=== PATIENT | male | born 1985 | race Caucasian/White ===

== ENCOUNTER 2024-04-12 03:34 | Emergency (ER) | payer OTHER, SELFPAY ==
--- NOTE | ~2024-04-12 | XR_ITS ---
EXAMINATION: XR FINGER, RIGHT CLINICAL INFORMATION: Distal right finger infection COMPARISON: None available. TECHNIQUE: Frontal x-ray of right hand, frontal and lateral x-rays of the right thumb. FINDINGS: BONES: Bony structures are intact. There is no focal bone destruction or periosteal reaction seen. JOINTS: Alignment of joints is normal. SOFT TISSUE: Soft tissue is normal. No radiopaque foreign body or abnormal air collection is seen. XR/XR finger RT min 2V IMPRESSION: 1. Normal x-rays of right thumb. No fracture or dislocation or signs of osteomyelitis are found. Electronically signed by: Swapna Matthews MD 04/12/2024 12:25 PM EDT
[2024-04-12 03:45] VITALS: BP 132/85; PULSE 116; RESP 16; TEMP 37.6; O2SAT 99; BMI 38.6
[2024-04-12 06:00] VITALS: BP 134/83; PULSE 104; RESP 16; TEMP 37.7; O2SAT 97
[2024-04-12] MEDS: Ibuprofen 600 MG TABLET PO (06:42)
--- NOTE | 2024-04-12 07:21 | PC.NURSE ---
this RN resumed care of pt at 0645. a&ox4. vss and up to date. pt presents to the ED w/ sudden onset right sided thumb pain a few days ago while at dinner w/ a friend. pt reports instant 10/10 pain. pt verbalizes build up fluid on top of thumb where he then sterilized a needle in attempts to drain it on it's own. pt states since self lancing, sx got worse. swelling/redness noted to right thumb. hot to the touch. pt afebrile at this time but reports chills. limited ROM in thumb. pulses palpable. skin marker drawn on by previous RN. no noticeable spread to affected area. tech bedside obtaining labs. no sob/wob noted. respirations even/unlabored. plan of care ongoing. call bañuelos placed within reach.
[2024-04-12 07:36] LABS: MANUAL DIFF FLAG NO
[2024-04-12 07:38] LABS: Basophils Percent Auto 0.2 % (0-2); Eosinophils Percent Auto 0.2 % (0-4); Hemoglobin 13.1 g/dl (14.0-18.0); Imm Gran Abs Auto 0.07 X10*3/uL (0.00-0.03); Imm Gran Pct Auto 0.4 % (0.0-0.4); Lymphocytes Absolute Auto 1.1 X10*3/uL (1.2-4.9); Lymphocytes Percent Auto 6.3 % (20-40); Mean Corpuscular HGB Conc 34.5 g/dl (31.0-36.0); Mean Corpuscular Hemoglobin 29.6 pg (27.0-33.0); Mean Corpuscular Volume 85.8 fL (80.0-98.0); Mean Platelet Volume 10.9 fL (9.4-12.4); Monocytes Percent Auto 5.8 % (2-11); Neutrophils Absolute Auto 14.7 x10*3/uL (2.0-8.3); Neutrophils Percent Auto 87.1 % (45-73); Platelet Count 258 X10*3/uL (160-400); Red Blood Count 4.43 X10*6/uL (4.60-5.80); Red Cell Distribution Width 12.7 % (11.0-16.0); White Blood Count 16.8 X10*3/uL (4.8-10.8)
[2024-04-12 07:52] LABS: Alanine Aminotransferase 24 U/L (0-40); Albumin Level 4.2 g/dL (3.5-5.0); Alkaline Phosphatase 59 U/L (39-117); Anion Gap 13 (12-20); Aspartate Amino Transferase 19 U/L (5-37); Bilirubin Total 1.5 mg/dL (0.0-1.0); Blood Urea Nitrogen 15 mg/dL (9-16); C Reactive Protein 1.94 mg/dL (< or = 0.50); Calcium 9.9 mg/dL (8.4-10.2); Carbon Dioxide 22 mmol/L (22-29); Chloride 105 mmol/L (96-108); Creatinine Clr Calc Pharmacy 134.1; Estimated Glomerular Filt Rate > 60; Glucose Random 106 mg/dL (60-115); Potassium 3.7 mmol/L (3.3-5.1); Sodium 136 mmol/L (135-145); Total Protein 6.9 g/dL (6.5-8.0)
[2024-04-12 08:00] VITALS: BP 115/70; PULSE 106; RESP 18; TEMP 36.8; O2SAT 95
--- NOTE | 2024-04-12 08:03 | ED_ITS ---
HPI - General Adult General Chief complaint: Skin/Abscess/Foreign Body Stated complaint: rt thumb infection Time Seen by Provider: 04/12/24 08:03 History of Present Illness ED Provider: Jass SHAIKH narrative: The patient is a 38-year-old who says that yesterday he noticed some swelling near the nail of his right thumb. It was warm and he said there were some blisters on the skin. Last night at around 10 p.m. he used a needle to try to pop the blisters. He thought some fluid or pus came out but then he developed worsening pain and swelling at the thumb and redness on the dorsum of the thumb that seemed to be spreading up the back of the thumb and was then streaking up his arm to his right axilla. No definite fever. Related Data Previous Rx's ?Medication ?Instructions ?Recorded cephalexin 500 mg capsule 500 mg PO QID 10 days #40 caps 04/12/24 doxycycline monohydrate 100 mg 100 mg PO BID #20 caps 04/12/24 capsule valacyclovir 1 gram tablet 1,000 mg PO TID 7 days #21 tabs 04/12/24 Allergies Allergy/AdvReac Type Severity Reaction Status Date / Time codeine Allergy Hives Verified 04/12/24 03:48 prednisone Allergy Hives Verified 04/12/24 03:47 sulfamethoxazole Allergy Hives Verified 04/12/24 03:48 [From Bactrim] trimethoprim [From Bactrim] Allergy Hives Verified 04/12/24 03:48 Review of Systems 2 Review of Systems: Yes all other systems are reviewed and are negative PMFSH Social History Social History Smoked in Last 30 Days: No Use of substances other than those prescribed or required for medical reasons: No Advance Directives: No Advance Directives Information Provided: No Do you have a plan to hurt others: No Plan Physical Exam ED Vital Signs: Vital Signs - 24 hr 04/12/24 10:00 04/12/24 11:13 Temperature 97.6 F 97.6 F Pulse Rate 106 H 106 H Respiratory Rate 18 18 Blood Pressure 141/78 H 141/78 H Pulse Oximetry 96 96 Oxygen Delivery Method Room Air Room Air BMI result Body Mass Index 38.6 Const Other: The patient is a 38-year-old male who was awake and alert with a normal mental status. He does not appear in acute distress. HENMT Head: Yes normal to inspection Face and sinus: Yes normal facial exam Mouth: moist mucous membranes Eyes General: appearance normal, both eyes and all related structures Neck Neck: Yes no lymphadenopathy Resp Effort & Inspection: normal respiratory effort Auscultation: clear to auscultation bilaterally Cardio Rate: regular rate Rhythm: regular rhythm Heart sounds: S1 normal heart sound present and S2 normal heart sound present Skin Other: The patient has some swelling and erythema to the paronychial skin of the right thumb. There is no apparent purulence. There is a vesicle on the erythema. There is also some additional erythema on the dorsum of the thumb that leads to a streak of lymphangitis on the volar forearm and the medial aspect of the upper arm terminating in the axilla. Neuro Other: The patient is awake and alert with a normal mental status. Cranial nerves are grossly intact. Normal neurological function of the right hand. Extrem Other: There is erythema and swelling to the paronychia skin of the right thumb associated with a small vesicle. There is also some additional erythema on the dorsum of the thumb generally. The patient is able to move the joints of the thumb. He is able to move all the joints of the right arm. Medications Administered Discontinued Medications Generic Name Dose Route Start Last Admin Trade Name Freq PRN Reason Stop Dose Admin Doxycycline Monohydrate 100 mg 04/12/24 10:48 04/12/24 11:05 Doxycycline Monohydrate 100 Mg Capsule PO 04/12/24 10:49 100 mg ONCE ONE Administration Cefazolin Sodium 1 gm/ Sodium 50 mls @ 100 mls/hr 04/12/24 08:51 04/12/24 09:36 Chloride IV 04/12/24 09:20 Infused ONCE ONE Infusion Cefazolin Sodium 1 gm/ Sodium 50 mls @ 100 mls/hr 04/12/24 08:52 04/12/24 09:36 Chloride IV 04/12/24 09:21 Infused ONCE ONE Infusion Ibuprofen 600 mg 04/12/24 06:29 04/12/24 06:42 Ibuprofen 600 Mg Tablet PO 04/12/24 06:30 600 mg ONCE ONE Administration Valacyclovir HCl 1,000 mg 04/12/24 08:19 04/12/24 08:48 Valacyclovir Hcl 1,000 Mg Tablet PO 04/12/24 08:20 1,000 mg ONCE ONE Administration Medical Decision Making Medical Decision Making MDM Narrative: The patient is here with a right arm infection beginning at the right thumb. I suspect the patient probably had an herpetic winter which has become superinfected and now has cellulitis on the dorsum of the right thumb associated with lymphangitis streaking up to the right axilla. The patient was given 2 g of cefazolin IV. He was offered hospitalization but would prefer to try an attempt management as an outpatient. He will also be put on valacyclovir for what may be a herpetic winter and also doxycycline. He should return if he is getting worse Lab Data 04/12/24 07:31 04/12/24 07:31 Labs: Lab Results 04/12/24 04/12/24 Range/Units 07:31 08:32 WBC 16.8 H (4.8-10.8) X10*3/uL RBC 4.43 L (4.60-5.80) X10*6/uL Hgb 13.1 L (14.0-18.0) g/dl Hct 38.0 L (42.0-52.0) % MCV 85.8 (80.0-98.0) fL MCH 29.6 (27.0-33.0) pg MCHC 34.5 (31.0-36.0) g/dl RDW 12.7 (11.0-16.0) % Plt Count 258 (160-400) X10*3/uL MPV 10.9 (9.4-12.4) fL Immature Gran % (Auto) 0.4 (0.0-0.4) % Neut % (Auto) 87.1 H (45-73) % Lymph % (Auto) 6.3 L (20-40) % [place] % (Auto) 5.8 (2-11) % Eos % (Auto) 0.2 (0-4) % Baso % (Auto) 0.2 (0-2) % Lymph # (Auto) 1.1 L (1.2-4.9) X10*3/uL [place] # (Auto) 1.0 (0.1-1.2) X10*3/uL Eos # (Auto) 0.0 (0.0-0.4) X10*3/uL Baso # (Auto) 0.0 (0.0-0.2) X10*3/uL Abs Immat Gran (auto) 0.07 H (0.00-0.03) X10*3/uL Absolute Neuts (auto) 14.7 H (2.0-8.3) x10*3/uL Absolute Nucleated RBC 0.000 (0.0-0.012) X10*3/uL Nucleated RBC % (auto) 0.0 (0.0-0.2) /100WBC ESR 7 (0-15) MM/HR Sodium 136 (135-145) mmol/L Potassium 3.7 (3.3-5.1) mmol/L Chloride 105 (96-108) mmol/L Carbon Dioxide 22 (22-29) mmol/L Anion Gap 13 (12-20) BUN 15 (9-16) mg/dL Creatinine 0.94 (0.5-1.4) mg/dL Estim Creat Clear Calc 134.1 Estimated GFR > 60 Random Glucose 106 (60-115) mg/dL Lactic Acid 1.4 (0.5-2.0) mmol/L Calcium 9.9 (8.4-10.2) mg/dL Total Bilirubin 1.5 H (0.0-1.0) mg/dL AST 19 (5-37) U/L ALT 24 (0-40) U/L Alkaline Phosphatase 59 (39-117) U/L C-Reactive Protein 1.94 H (< or = 0.50) mg/dL Total Protein 6.9 (6.5-8.0) g/dL Albumin 4.2 (3.5-5.0) g/dL Discharge Plan Discharge Clinical Impression: Cellulitis with lymphangitis, Cellulitis of right thumb, 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 on your thumb. This is finger infection related to the herpes virus. I suspect that this then became superinfected with a bacteria and this is causing an infection that we call a cellulitis, an infection of the skin. The red streaking on your arm is called lymphangitis. To treat the winter you have been started on an antiviral medication valacyclovir. Please take this 3 times a day, approximately every 8 hours. To treat the cellulitis and lymphangitis you have been started on 2 antibiotics. Please take the cephalexin 4 times a day (approximately every 6 hours) and doxycycline 2 times a day (approximately every 12 hours). Rest the arm and keep the hand elevated. Please plan on following up with your regular doctor. If you feel that things are getting worse he will need to return to the emergency room and be hospitalized for IV antibiotics. Prescriptions: New cephalexin 500 mg capsule 500 mg PO QID 10 Days Qty: 40 0RF doxycycline monohydrate 100 mg capsule 100 mg PO BID Qty: 20 0RF valacyclovir 1 gram tablet 1,000 mg PO TID 7 Days Qty: 21 0RF Referrals: Oscar Levy MD [Primary Care Provider] - (Herpetic winter with cellulitis and lymphangitis) Stand Alone Forms: Work/School Release Interventions: ED Discharge Assessment Last Done: 04/12/24 11:13 Discharge Date/Time: 04/12/24 11:13 Print Language: Telugu
[2024-04-12 08:19] LABS: Erythrocyte Sedimentation Rate 7 MM/HR (0-15)
[2024-04-12] MEDS: valACYclovir HCL 1,000 MG TABLET 1000 MG PO (08:48)
--- NOTE | 2024-04-12 08:49 | MHC.EDTECH ---
this tech brandee blood cultures and a lactic from pt, vein stopped flowing while taking the lactic, lab was contacted and RN aware. Sent down half tube.
--- NOTE | 2024-04-12 09:02 | PC.NURSE ---
20gIV placed in the left forearm - labs obtained/sent to lab. abx administered per provider order. pt waiting to go to xray at this time.
[2024-04-12 09:08] LABS: Lactic Acid 1.4 mmol/L (0.5-2.0)
[2024-04-12 10:00] VITALS: BP 141/78; PULSE 106; RESP 18; TEMP 36.4; O2SAT 96
[2024-04-12] MEDS: Doxycycline Monohydrate 100 MG CAPSULE PO (11:05)
[2024-04-12 11:13] VITALS: BP 141/78; PULSE 106; RESP 18; TEMP 36.4; O2SAT 96
== END 2024-04-12 11:13 | disposition home or self-care (01) ==
PROVIDERS: Emergency Provider Emergency Medicine; PCP Internal Medicine
DX: B00.89 Other herpesviral infection (principal); I89.1 Lymphangitis; M79.89 Other specified soft tissue disorders
CPT/HCPCS: 36415; 73140; 80053; 83605; 85025; 85652; 86140; 87040; 96365; 99284; 99285; J0690